=== PATIENT | male | born 1950 | race Caucasian/White ===

== ENCOUNTER 2022-02-26 15:50 | Emergency (ER) | payer OTHER ==
[2022-02-26] MEDS ORDERED: Acetaminophen 500 MG TAB ONE (16:18)
== END 2022-02-26 17:35 | disposition home or self-care (01) ==
LOC: BURERS 15:50
DX: L03.114 Cellulitis of left upper limb (principal); I10 Essential (primary) hypertension
CPT/HCPCS: 99283